=== PATIENT | male | born 1940 | race Caucasian/White ===

== ENCOUNTER 2016-12-12 13:09 | Emergency (ER) | payer OTHER ==
[~2016-12-12] VITALS: Ht 175.3 cm; Wt 88.5 kg
--- NOTE | ~2016-12-12 | EKG ---
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 : 1940 Requested By: Parul Alejandro Order Number: [id number] MD: Avni Adams Measurements Intervals [place] Rate: 71 P: 21 KS: 244 QRS: -24 QRSD: 102 T: -17 QT: 369 QTc: 401 Interpretive Statements Sinus rhythm Prolonged KS interval Borderline left axis deviation Nonspecific T abnormalities, anterior leads Compared to ECG 04/09/2016 17:52:18 No significant changes Electronically Signed On 12-12-2016 16:00:29 CDT by Avni Adams [email or web address] <ELECTRONICALLY SIGNED> By: Avni Adams MD 12/12/16 1600 06 06 Avni Adams MD /EMY
[~2016-12-12 13:09] MED LIST: ACCUNEB SO1.25 MG/1 INH; ASPIR 8181 MG PO; ATIVAN0.5 MG PO; ATIVAN1 MG PO; AUGMENTIN 875875 MG PO; FLOVENT HFA 1110 MCG INH; LIPITOR 20 MG T20 M1 PO; MECLIZINE HCL12.5 MG PO; OFEV150 MG PO; PREDNISONE 5 MG5 M1 PO; PRILOSEC OTC20 MG PO; PROAIR HFA8.5 GM; PULMICORT0.5 MG/22 INH; SEROQUEL 25 MG25 M1 PO; VENTOLIN HFA 1818 GM INH; VITAMIN D1000 UNI1 PO; VITAMIN D3400 UNIT PO; ZOLOFT50 MG PO; [UNRECOGNIZED DRUG - OTHER] PO
[2016-12-12 13:25] LABS: BASOPHILS 0.8 % (0.0-2.0); EOSINOPHILS 5.1 % (0.0-3.0); HEMATOCRIT 43.5 % (42.0-52.0); HEMOGLOBIN 14.8 gm/dL (14.0-18.0); LYMPHOCYTES 14.9 % (24.0-44.0); MCH 31.6 pg (26.0-34.0); MONOCYTES 10.9 % (1.0-8.0); PLATELET COUNT 196 thou/uL (150-400); POLYS 68.3 % (36.0-66.0); RBC 4.67 mil/uL (4.50-6.00); RDW 14.9 % (10.5-14.5); WBC 7.4 thou/uL (4.0-11.0)
[2016-12-12 13:29] LABS: MANUAL DIFF NO
[2016-12-12 13:34] LABS: ANION GAP 9 mmol/L (7-16); BUN 18 mg/dL (7-18); CALCIUM 8.6 mg/dL (8.5-10.1); CHLORIDE 104 mmol/L (98-107); CO2 26 mmol/L (21-32); GLUCOSE 101 mg/dL (74-106); POTASSIUM 3.9 mmol/L (3.5-5.1); SODIUM 139 mmol/L (136-145)
[2016-12-12 13:44] LABS: TROPONIN-I < 0.04 ng/mL (<0.04-0.07)
== END 2016-12-12 16:45 | disposition home or self-care (01) ==
LOC: ER 13:09
PROVIDERS: Emergency Medicine
DX: R07.9 Chest pain, unspecified (principal); K21.9 Gastro-esophageal reflux disease without esophagitis; E78.00 Pure hypercholesterolemia, unspecified; G47.30 Sleep apnea, unspecified; Z96.653 Presence of artificial knee joint, bilateral; J84.112 Idiopathic pulmonary fibrosis

== ENCOUNTER 2017-08-28 09:41 | Inpatient (IN) | payer OTHER ==
[~2017-08-28] VITALS: Ht 177.8 cm; Wt 90.3 kg
[2017-08-28] VITALS (34 sets, daily range): BP systolic 105–140; BP diastolic 52–102
--- NOTE | ~2017-08-28 | H ---
[facility] [place] [address] HISTORY AND PHYSICAL Name: SVETA HEART Angie Room #: 238-P [facility] IN .R.#: [id number] Admission: 08/28/17 Attend Phys: Christopher Mccann MD Discharge: 09/01/17 Date of : 40 Report #: [id number] THIS REPORT FOR: //name// CC: BOB Mccann DATE OF SERVICE: 08/28/2017 CHIEF COMPLAINT: Syncope, respiratory failure and shortness of breath. HISTORY OF PRESENT ILLNESS: Information was provided by the patient, the patient's chart and his family. He passed out in the kitchen this morning, just before sitting down for breakfast. EMS reports that his oxygen saturation was 70% on 10 liters of oxygen by nasal cannula at home. However, the oxygen concentrator was located in an upstairs bedroom and adjusted for 10 liters of oxygen output, and there is a very, very long hose, according to the family's description, that stretches down the stairs and into the kitchen where the patient was. EMS was able to bring the patient up to 98% oxygen saturation on a nonrebreathing mask en route to the hospital and there is some question as to the actual amount of oxygen being delivered at the end of his long tubing. He has a finger oximeter at home, but it is an old device and has stopped working, even though his has tried replacing the batteries. He has been having more cough and shortness of breath this last week. He was advised by the Pulmonary staff at [facility] to use Zyrtec at night and Flonase in the morning for what was felt to be allergies. He was in my office 2 weeks ago, on 08/15/2017, and reported he had been sneezing and thought that he was developing a "cold". Admission was indicated because of acute respiratory failure. In the emergency room, he was noted to have a low-grade fever of 37.3 and a mildly elevated white blood cell count at 11,100 with a mild left shift. His chest x-ray showed no significant changes from the previous patchy infiltrates within the left lower lobe noticed 12/12/2016. He was seen in Pulmonary Medicine consultation by Dr. Brian Huddleston and admitted to the Intensive Care Unit. Currently, he is maintained on 60% FiO2 with a high flow (45 liters) nasal cannula with humidification. A very brief limited conversation with me during my exam dropped his oxygen saturations to 86%, from his treated level. After my exam, he required an increase to 70% FiO2 accomplished with 50 liters of oxygen by high-flow nasal cannula, and currently, is 96% saturated. He has had a long-standing progressive idiopathic pulmonary fibrosis, treated at [facility] for several years now. This fall, he was able to participate [place] pulmonary [place] [address] HISTORY AND PHYSICAL Name: SVETA HEART Angie Room #: 238-P [facility] IN M.R.#: [id number] Admission: 08/28/17 Attend Phys: Christopher Mccann MD Discharge: 09/01/17 Date of : 40 Report #: [id number] [facility] and felt well. In the fall of 2016, he used 10 liters of oxygen while exercising and 4 liters at rest. He did not qualify for clinical trial 1199.36 due to his inability to perform PFTs to satisfaction. He also has obstructive sleep apnea, using his CPAP machine at night with breathing and oxygen on every night basis. He may have a component of asthma and was on Singulair, Flovent and albuterol. Gastroesophageal reflux is controlled with twice daily medication. He does have anxiety related to dyspnea, and he did have some issues with urinary incontinence that responded so well to tamsulosin that he was able to discontinue it. Recently, he has had these symptoms recur. ALLERGIES: HE IS INTOLERANT TO SOME PAIN MEDICATIONS. CURRENT MEDICATIONS: He uses sertraline 50 mg 2 tablets daily, atorvastatin 20 mg daily, Ofev 150 mg twice daily for his pulmonary fibrosis, aspirin 81 mg daily, vitamin D 2000 international units daily, Men's 50+ multivitamin 1 daily, Prilosec 20 mg 1 daily, albuterol 0.083% in a nebulizer every 4 hours and as needed, budesonide inhalation suspension 0.5 mg 1 vial by nebulizer twice daily and he recently restarted tamsulosin 1 daily. REVIEW OF SYSTEMS: He has been falling more recently in the last week and fell at [facility], may be possibly due to inadequate oxygen flow, although he was using a pressurized tank. He has been constipated. Otherwise, his review of systems is negative, except for the HPI above. FAMILY HISTORY: Noncontributory. SOCIAL HISTORY: He lives independently with his , who gives him a tremendous amount of support in their own home. He does not drink and does not smoke. PHYSICAL EXAMINATION: GENERAL: This evening, I examined the patient in his ICU bed. He appeared comfortable at rest. He was able to converse in short sentences. He had a small cough. He did desaturate after the short conversation and had his oxygen levels increased, as reviewed in the body of the report above. HEENT: His oropharynx was unremarkable. NECK: Unremarkable. HEART: His heart tones were normal and regular. LUNGS: He had faint inspiratory crackles in all anterior lung casillas. ABDOMEN: Soft and mildly distended. He may have had a palpable bladder in the lower pelvis. EXTREMITIES: He had no clubbing, cyanosis or edema in the lower extremities. [facility] [address] [place] [address] HISTORY AND PHYSICAL Name: SVETA HEART Angie Room #: 238-P [facility] IN ..#: [id number] Admission: 08/28/17 Attend Phys: Christopher Mccann MD Discharge: 09/01/17 Date of : 40 Report #: [id number] GENITOURINARY: He and his family reported that he has not urinated all day. ASSESSMENT: 1. Acute respiratory failure. 2. On top of chronic respiratory failure. 3. Low-grade temperature of 37.3 with a mild left shift with a total white count of 11.1 thousand, perhaps indicating an acute pulmonary virus as the etiology for his decompensation. 4. Urine retention and recent history of urinary incontinence. 5. Hyperlipidemia. 6. Depression. 7. Anxiety related to his dyspnea. 8. Several recent falls. 9. Syncopal episode at home earlier this morning. 10. Other medical problems as mentioned in the history and physical. PLAN: His family is here and talking with me now and they were present earlier today when he spoke with Dr. Huddleston. He is being treated with high-flow nasal cannula oxygen, broad-spectrum antibiotics, intravenous glucocorticosteroids, sliding scale insulin and half normal saline. Dr. Huddleston reported to the patient and the family that his pulmonary fibrosis was more severe and I shared with the family Dr. Huddleston's note that his prognosis was poor. His family told me that he discussed resuscitation with the patient. His was present and agrees that Dr. Huddleston informed the patient that if he were intubated and placed on a breathing machine, that Dr. Huddleston was doubtful that he would be able to survive without the ventilator machine. The family tell me that the patient told Dr. Huddleston that he had several grandchildren and that he was not ready to yet and that should he need artificial ventilation, he would want it to be performed. His usual home medications will be ordered as appropriate. His sertraline certainly may be beneficial for him now at this point in time, but his atorvastatin and vitamins are not essential. He will continue in the Intensive Care Unit overnight. <ELECTRONICALLY SIGNED> By: Christopher Mccann MD 09/01/17 2222 55 18 Christopher Mccann MD /nt
--- NOTE | ~2017-08-28 | EKG ---
[place] [address] [facility] [place] [address] ELECTROCARDIOGRAM REPORT Name: SVETA HEART Room #: 238-P ADM IN M.R.#: [id number] Admission: 08/28/17 Attend Phys: Christopher Mccann MD Discharge: Date of : 40 Report #: [id number] THIS REPORT FOR: //name// [facility] ED Test Date: 2017-08-28 Test Time: 10:01:35 Pat Name: SVETA HEART Department: Room: 238 Gender: M Specialty Development Consultant: wesley : 1940 Requested By: Parul Alejandro Order Number: [id number] MD: Avni Adams Measurements Intervals Warren Rate: 103 P: 24 WY: 209 QRS: -23 QRSD: 98 T: 5 QT: 320 QTc: 419 Interpretive Statements Sinus tachycardia Borderline prolonged WY interval Probable left atrial enlargement Borderline left axis deviation Abnormal R-wave progression, late transition Compared to ECG 12/12/2016 13:07:03 Sinus rhythm no longer present T-wave abnormality no longer present Electronically Signed On 08-29-2017 8:26:31 SPIKE MACHINE FEEDER by Avni Adams [email or web address] <ELECTRONICALLY SIGNED> By: Avni Adams MD 08/29/17 0826 100 00 Avni Adams MD /EPI
--- NOTE | ~2017-08-28 | HC ---
[facility] [place] [address] CONSULTATION Name: SVETA HEART Room #: 238-P [facility] IN M.R.#: [id number] Admission: 08/28/17 Attend Phys: Christopher Mccann MD Discharge: Date of : 40 Report #: [id number] THIS REPORT FOR: //name// CC: Christopher Mccann TYPE OF REPORT: Pulmonary consultation. PRIMARY CARE PHYSICIAN: Christopher Mccann M.D. REASON FOR REFERRAL: Kfubd-ef-ktrysdm hypoxic respiratory failure. HISTORY OF PRESENT ILLNESS: The patient is a 77-year-old white male who presents to Emergency Room with progressive dyspnea and falls and possible syncope. A pulmonary consultation was requested. The patient has been diagnosed with pulmonary fibrosis about 5-6 years ago. He is followed by Dr. Mcclure at [facility]. He has been seen by the Pulmonary Department there. He has undergone extensive evaluation in the past. I do not have the records, but he was told he had pulmonary fibrosis. It appears the patient may have idiopathic pulmonary fibrosis. He is currently on nintedanib 150 mg b.i.d. for his interstitial lung disease. He has been on it for some time. According to the patient, he has been told that he has not responded well to the medication so far. He has been on oxygen for the last 2 years. He states he has been on 10 liters of oxygen for the past year or so. Of note, he has worked at the [employer] and also been exposed to industrial dust including other chemicals. There were concerns that they may have been contributing to his interstitial lung disease. Of note, he has not had a lung biopsy. He did have a bronchoscopy along with extensive blood work. He was in his usual state of health until over the last few days, he started noted increasing dyspnea on exertion. Earlier today, it was found to be quite dyspneic with minimal exertion. His saturation said to have dropped to around 70% while on 10 liters of O2. He has said to have fallen once but may have a syncopal episode the second time. Following his fall, 911 was called. Presently, he is more awake. Saturations adequate on 100% nonrebreather. He is dyspneic, but denies any chest pain, productive cough, night sweats or chills or hemoptysis. Three weeks ago, his had an upper respiratory tract infection. PAST MEDICAL HISTORY: Notable for interstitial lung disease, presumed [facility] [address] [place] [address] CONSULTATION Name: SVETA HEART Room #: 238-P [facility] IN [facility]#: [id number] Admission: 08/28/17 Attend Phys: Christopher Mccann MD Discharge: Date of : 40 Report #: [id number] idiopathic pulmonary fibrosis, details unclear. He has been worked up at [facility], will request medical records. History of gastroesophageal reflux disease, atrial flutter status post ablation, KYLEE on home CPAP and status post bilateral knee replacement. PAST SURGICAL HISTORY: As mentioned above. ALLERGIES: None to medications. HOME MEDICATIONS: Include nintedanib, esylate (Ofev) 150 mg b.i.d., Ventolin p.r.n., Lipitor, Zoloft, aspirin, Prilosec, nebulized albuterol q.i.d. p.r.n., nebulized Pulmicort b.i.d., Flomax and multivitamin. FAMILY HISTORY: Noncontributory. SOCIAL HISTORY: The patient is a lifetime nonsmoker. Denies alcohol use. He is retired. He is . MEDICAL DIRECTIVE: He is a full code blue for now. REVIEW OF SYSTEMS: As mentioned above. It is notable for progressive dyspnea on exertion. Otherwise, a 10-point system review negative. PHYSICAL EXAMINATION: GENERAL: He is awake, alert, in moderate distress due to dyspnea. VITAL SIGNS: Temperature is 37.3 degrees Fahrenheit, pulse is 100, respiratory rate is 30, blood pressure 112/73 mmHg and saturation 94%. HEENT: Normocephalic and atraumatic. NECK: Supple, without lymphadenopathy or thyromegaly. CHEST: Air movements are decreased with bilateral crackles. No wheezes. CARDIOVASCULAR: Normal S1 and S2. There are no murmurs or gallop. There is no JVD. There is no carotid bruit. Pulses are 2+/4+ bilaterally. ABDOMEN: Soft and nontender. No organomegaly or masses felt. GENITOURINARY: Deferred. RECTAL: Deferred. EXTREMITIES: There is no edema, cyanosis or clubbing. RADIOLOGICAL DATA: Chest x-ray showed diffuse bilateral interstitial changes, interstitial infiltrates and lung volumes are decreased. No consolidation is noted. Venous Doppler of lower extremity shows no evidence of DVT. Echocardiogram shows a normal LV function, ejection fraction 55%-60% and pulmonary artery pressure measures 60 mmHg. No obvious valvular heart disease. LABORATORY DATA: Influenza A and B is negative. Arterial blood gas revealed pH 7.45, pCO2 35, pO2 149 on FiO2 45%. WBC 12,100; hemoglobin 12.[address] [address] CONSULTATION Name: SVETA HEART Room #: 238-P ADM IN [place].#: [id number] Admission: 08/28/17 Attend Phys: Christopher Mccann MD Discharge: Date of : 40 Report #: [id number] are normal without obvious bandemia. IMPRESSION: 1. Jxqxm-dz-vtlgutz hypoxic respiratory failure in this 77-year-old white male. He has a history of pulmonary fibrosis. Chest x-ray shows no obvious consolidation. Etiology is probably related to exacerbation of interstitial lung disease. Need to consider possible early lower respiratory tract infection, possible viral syndrome. 2. Interstitial lung disease, presumed idiopathic pulmonary fibrosis. The patient felt that exacerbation. I would recommend high dose corticosteroids. 3. Pulmonary hypertension, due to pulmonary impairment. It is moderately severe. 4. Questionable syncopal episode, may be related to profound hypoxia and/or pulmonary hypertension. I do not think he had a massive or severe pulmonary embolus, though this will need to be considered. I do not think the patient had cerebrovascular accident. 5. History of early onset dementia, depression and anxiety disorder. 6. Atrial flutter status post ablation. 7. Obstructive sleep apnea, on home continuous positive airway pressure. 8. Medical directive: Full code. RECOMMENDATIONS: We will treat for presumed exacerbation of IPF with high-dose corticosteroids. Cannot rule out pneumonia and therefore, we will start broad-spectrum antibiotics to cover for the usual community-acquired organisms. Keep O2 for saturation 90%. Resume home CPAP during sleep. I have also discussed with the patient and family regarding overall prognosis. It appears that his pulmonary fibrosis is severe and progressive, especially requiring 10 liters of O2. At this time, the patient desires full code blue. DVT and GI prophylaxis will be addressed. The patient also be worked up for venothromboembolic disease, though my suspicion for pulmonary embolus is low. Thank you for this consultation. <ELECTRONICALLY SIGNED> By: Brian Huddleston MD 08/30/17 1737 1629 2229 Brian Huddleston MD /nt
--- NOTE | ~2017-08-28 | 2DMMODE ---
[facility] [address] [place] [address] 2 D/M-MODE ECHOCARDIOGRAM Name: SVETA HEART Room #: 238-P [facility] IN ..#: [id number] Admission: 08/28/17 Attend Phys: Christopher Mccann, Discharge: Date of : 40 Date of Service: 08/28/17 1432 Report #: [id number] THIS REPORT FOR: //name// APPROVED REPORT Study performed: 08/28/2017 13:17:43 EXAM: Comprehensive 2D, Doppler, and color-flow Echocardiogram Patient Location: ICU Room #: 238 Status: stat BSA: 1.97 HR: 99 bpm BP: 120/73 mmHg Other Information Study Quality: Adequate Indications COPD Dyspnea Syncope Chest Pain Atrial flutter S^P ablation 2D Dimensions RVDd: 43.97 mm LVEF(%): 60.21 (>50%) IVSd: 9.64 (7-11mm) LVOT Diam: 23.08 (18-24mm) LVDd: 43.53 mm PWd: 9.50 (7-11mm) Ascending Ao: 35.22 (22-36mm) LVDs: 29.66 (25-40mm) Aortic Root: 35.55 mm IVC: 25.00 mm Moss's LVEF: 60.21 % Volumes Left Atrial Volume (Systole) Single Plane 4CH: 35.15 mL Single Plane 2CH: 48.38 mL LA ESV Index: 23.00 mL/m2 Aortic Valve AoV Peak Warren.: 1.84 m/s AO Peak Gr.: 13.52 mmHg LVOT Max P.13 mmHg LVOT Max V: 1.02 m/s EDUARDO Vmax: 2.31 cm2 [facility] [address] [place] [address] 2 D/M-MODE ECHOCARDIOGRAM Name: SVETA HEART Room #: 238-[facility]#: [id number] Admission: 08/28/17 Attend Phys: Christopher Mccann, Discharge: Date of : 40 Date of Service: 08/28/17 1432 Report #: [id number] Mitral Valve E/A Ratio: 1.2 MV Decel. Time: 222.93 ms MV E Max Warren.: 0.91 m/s MV A Warren.: 0.75 m/s MV PHT: 64.65 ms IVRT: 78.43 ms Pulmonary Valve PV Peak Warren.: 0.76 m/s PV Peak Gr.: 2.33 mmHg Pulmonary Vein P Vein S: 0.56 m/s P Vein A: 0.22 m/s P Vein D: 0.45 m/s P Vein A Dur.: 72.7 msec P Vein S/D Ratio: 1.24 Tricuspid Valve TR Peak Warren.: 3.64 m/s TR Peak Gr.: 52.92 mmHg PA Pressure: 68.00 mmHg Left Ventricle The left ventricle is normal size. There is normal LV segmental wall motion. There is normal left ventricular wall thickness. The left ventricular systolic function is normal. The left ventricular ejection fraction is within the normal range. LVEF is 55-60%. The left ventricular diastolic function is normal. Right Ventricle Right ventricle is dilated. The right ventricular systolic function is normal. Atria The left atrium size is normal. Right atrium is dilated. Aortic Valve Aortic valve is calcified. No aortic regurgitation is present. There is no aortic valvular stenosis. Mitral Valve The mitral valve is normal in structure. Trace to mild mitral regurgitation. No evidence of mitral valve stenosis. Tricuspid Valve The tricuspid valve is normal in structure. There is mild to moderate tricuspid regurgitation. The right atrial pressure is estimated at [facility] [address] [place] [address] 2 D/M-MODE ECHOCARDIOGRAM Name: SVTEA HEART Room #: 238-P [facility] IN [facility]#: [id number] Admission: 08/28/17 Attend Phys: Christopher Mccann, Discharge: Date of : 40 Date of Service: 08/28/17 1432 Report #: [id number]. There is moderate-severe pulmonary hypertension. Pulmonic Valve The pulmonary valve is normal in structure. There is no pulmonic valvular regurgitation. Great Vessels The aortic root is normal in size. The inferior vena cava is dilated with no inspiratory collapse. Pericardium There is no pericardial effusion. <Conclusion> The left ventricular systolic function is normal. There is normal LV segmental wall motion. LVEF 55-60%. Right ventricle is dilated. Aortic valve is calcified. No aortic valvular stenosis or insufficiency. The mitral valve is normal in structure. Trace to mild mitral regurgitation. There is mild to moderate tricuspid regurgitation. Pulmonary artery pressure of approximately 60mm Hg There is no pericardial effusion. <ELECTRONICALLY SIGNED> By: Jason Dominguez MD, FACC 08/28/17 1432 1432 143 Jason Dominguez MD, FACC /INF
--- NOTE | ~2017-08-28 | D ---
[facility] [place] [address] DISCHARGE SUMMARY Name: [facility] Angie Room #: 238-P [facility] IN ..#: [id number] Admission: 08/28/17 Attend Phys: Christopher Mccann MD Discharge: 09/01/17 Date of : 40 Report #: [id number] THIS REPORT FOR: //name// CC: Christopher Mccann DATE OF SERVICE: 09/01/2017 SUMMARY OF HISTORY AND PHYSICAL: The patient's had a viral illness of 2-3 weeks before his admission to the hospital. He noticed an increase in his oxygen needs, he was more short of breath, and may have tripped and fell in the kitchen or had a syncopal episode. He was brought to the Emergency Room and found to require much more oxygen than usual, and admitted. He did have a low grade fever of 37.3, 99.1 that suggested the possibility of an acute viral illness causing a decompensation in his oxygenation and of his idiopathic interstitial fibrosis. He required admission to the Intensive Care Unit for careful monitoring and therapy. SUMMARY OF HOSPITAL COURSE: He was seen in Pulmonary Medicine consultation by Dr. Brian Huddleston. He was given high dose corticosteroids, broad spectrum antibiotics, his influenza A and B nasal swabs were negative, and he was placed on high flow nasal oxygen. His oxygen needs steadily progressed over the next 4 days in the hospital, despite his high dose corticosteroids and broad-spectrum antibiotic treatment. He became absolutely dependent on BiPAP for oxygenation. He was unable to remove his mask for even several seconds without significantly desaturating. He was unable to talk, he was unable to eat, he was unable to drink fluids. Intubation was imminent. With his progressive respiratory failure and increased oxygen needs, with the family's permission, his specialty closing specialist at the [facility], of the [facility] physician, Dr. Josh Mcclure, was contacted and accepted the patient in transfer. DISCHARGE DIAGNOSES: 1. Acute progressive severe respiratory failure. 2. End-stage chronic idiopathic pulmonary fibrosis. 3. Sepsis: Temperature of 99.1, tachypnea at 33, heart rate of 103, sugar of 152 without diabetes. 4. Severe malnutrition with an albumin of 2.6. 5. Likely trigger is a acute viral pulmonary infection. 6. Gastroesophageal reflux disease. 7. Obstructive sleep apnea, on home continuous positive airway pressure. 8. Atrial flutter S/P ablation, currently normal sinus rhythm. 9. History of gastroesophageal reflux disease. [facility] [address] [place] [address] DISCHARGE SUMMARY Name: [facility] Room #: 238-P [facility] IN [facility].#: [id number] Admission: 08/28/17 Attend Phys: Christopher Mccann MD Discharge: 09/01/17 Date of : 40 Report #: [id number] 10. Depression. 11. At the time of transfer, the patient's code status is that of a full code blue. <ELECTRONICALLY SIGNED> By: Christopher Mccann MD 09/04/17 [id number] Christopher Mccann MD /nt
[2017-08-28 09:59] LABS: ABSOLUTE NEUTROPHILS 9.6 thou/uL (1.4-8.2); BASOPHILS 0.3 % (0.0-2.0); EOSINOPHILS 0.8 % (0.0-3.0); HEMATOCRIT 36.5 % (42.0-52.0); HEMOGLOBIN 12.2 gm/dL (14.0-18.0); LYMPHOCYTES 4.1 % (24.0-44.0); MCHC 33.5 g/dL (28.0-37.0); MCV 95.7 fL (80.0-100.0); MONOCYTES 8.3 % (1.0-8.0); PLATELET COUNT 175 thou/uL (150-400); POLYS 86.5 % (36.0-66.0); RBC 3.82 mil/uL (4.50-6.00); RDW 14.8 % (10.5-14.5); WBC 11.1 thou/uL (4.0-11.0)
[2017-08-28 10:07] LABS: CALCIUM 8.9 mg/dL (8.5-10.1); CREATININE 1.1 mg/dL (0.7-1.3)
[2017-08-28] MEDS ORDERED: FLOMAX0.4 MG PO (10:08)
[2017-08-28] MEDS ORDERED: UNICOMPLEX M TA1 TA1 PO (10:09)
[2017-08-28 10:17] LABS: BE(vivo) 0.3 mmol/L (-2 to +3); HCO3 23.8 mmol/L (22.0-26.0); PO2 149.9 mmHg (80.0-100.0); pH 7.451 (7.360-7.450)
[2017-08-29] VITALS (48 sets, daily range): BP systolic 92–176; BP diastolic 56–120
[2017-08-29 05:11] LABS: BE(vivo) -0.6 mmol/L (-2 to +3); HCO3 23.8 mmol/L (22.0-26.0); PCO2 38.2 mmHg (35.0-45.0); PO2 160.1 mmHg (80.0-100.0); pH 7.412 (7.360-7.450); sO2 99.1 % (92.0-98.0)
[2017-08-29 05:51] LABS: HEMATOCRIT 36.9 % (42.0-52.0); HEMOGLOBIN 12.3 gm/dL (14.0-18.0); MCH 31.9 pg (26.0-34.0); MCHC 33.4 g/dL (28.0-37.0); MCV 95.4 fL (80.0-100.0); RBC 3.87 mil/uL (4.50-6.00); RDW 14.4 % (10.5-14.5); WBC 12.7 thou/uL (4.0-11.0)
[2017-08-29 06:07] LABS: ALBUMIN 2.6 g/dL (3.4-5.0); CALCIUM 8.5 mg/dL (8.5-10.1); CREATININE 1.1 mg/dL (0.7-1.3); POTASSIUM 3.7 mmol/L (3.5-5.1); TOTAL BILIRUBIN 0.5 mg/dL (<0.1-1.0)
[2017-08-30] VITALS (20 sets, daily range): BP systolic 108–132; BP diastolic 65–89
[2017-08-31] VITALS (24 sets, daily range): BP systolic 114–152; BP diastolic 78–93
[2017-08-31 06:23] LABS: HEMATOCRIT 36.7 % (42.0-52.0); HEMOGLOBIN 12.2 gm/dL (14.0-18.0); MCH 31.5 pg (26.0-34.0); MCHC 33.3 g/dL (28.0-37.0); MCV 94.9 fL (80.0-100.0); RBC 3.87 mil/uL (4.50-6.00); RDW 14.3 % (10.5-14.5); WBC 16.1 thou/uL (4.0-11.0)
[2017-08-31 06:32] LABS: CALCIUM 8.9 mg/dL (8.5-10.1); POTASSIUM 4.3 mmol/L (3.5-5.1)
[2017-09-01] VITALS (14 sets, daily range): BP systolic 107–143; BP diastolic 76–91
[2017-09-01 08:18] LABS: CALCIUM 8.9 mg/dL (8.5-10.1); POTASSIUM 4.2 mmol/L (3.5-5.1)
== END 2017-09-01 14:10 | disposition short-term general hospital (02) | DRG 871 ==
LOC: ER 09:41 → ICU 10:28 → EROBS 10:28 → ICU 12:11
PROVIDERS: Emergency Medicine; Internal Medicine; Internal Medicine Pulmonary Disease
PROC: 5A09357 Assistance with Respiratory Ventilation, Less than 24 Consecutive Hours, Continuous Positive Airway Pressure (ICD-10-PCS; principal; 2017-08-29)
PROC: 5A09357 Assistance with Respiratory Ventilation, Less than 24 Consecutive Hours, Continuous Positive Airway Pressure (ICD-10-PCS; 2017-08-30)
PROC: 5A09357 Assistance with Respiratory Ventilation, Less than 24 Consecutive Hours, Continuous Positive Airway Pressure (ICD-10-PCS; 2017-08-31)
PROC: 5A09357 Assistance with Respiratory Ventilation, Less than 24 Consecutive Hours, Continuous Positive Airway Pressure (ICD-10-PCS; 2017-09-01)
DX: A41.9 Sepsis, unspecified organism (principal); J96.21 Acute and chronic respiratory failure with hypoxia; E43 Unspecified severe protein-calorie malnutrition; I48.92 Unspecified atrial flutter; J44.1 Chronic obstructive pulmonary disease with (acute) exacerbation; J84.9 Interstitial pulmonary disease, unspecified; E87.0 Hyperosmolality and hypernatremia; K21.9 Gastro-esophageal reflux disease without esophagitis; E78.00 Pure hypercholesterolemia, unspecified; Z96.653 Presence of artificial knee joint, bilateral; G47.33 Obstructive sleep apnea (adult) (pediatric); I27.20 Pulmonary hypertension, unspecified; F03.90 Unspecified dementia, unspecified severity, without behavioral disturbance, psychotic disturbance, mood disturbance, and anxiety; F32.9 Major depressive disorder, single episode, unspecified; F41.9 Anxiety disorder, unspecified; J84.112 Idiopathic pulmonary fibrosis; R33.9 Retention of urine, unspecified; E78.5 Hyperlipidemia, unspecified; M54.32 Sciatica, left side; Z68.28 Body mass index [BMI] 28.0-28.9, adult; Z99.81 Dependence on supplemental oxygen; Z79.899 Other long term (current) drug therapy
CPT/HCPCS: 10203